=== PATIENT | female | born 1970 | race African-American/Black ===

== ENCOUNTER 2022-03-06 12:37 | Emergency (ER) | payer MEDICAID ==
[~2022-03-06] VITALS: Ht 170.2 cm; Wt 66.0 kg
[2022-03-06 12:42] VITALS: BP 114/62
== END 2022-03-06 14:24 | disposition home or self-care (01) ==
LOC: ER 12:37
DX: M79.642 Pain in left hand (principal); V49.9XXA Car occupant (driver) (passenger) injured in unspecified traffic accident, initial encounter; Y93.89 Activity, other specified; Y92.89 Other specified places as the place of occurrence of the external cause; Y99.8 Other external cause status
CPT/HCPCS: 99281